=== PATIENT | female | born 1960 | race Caucasian/White ===

== ENCOUNTER → 2016-10-11 | Outpatient (CLI) | payer OTHER ==
[~2016-10-11] MED LIST: ASPEC81 PO; LPT40 PO
== END | disposition home or self-care (01) ==
LOC: C.PAPS 16:10
PROVIDERS: ATTEND Obstetrics & Gynecology
DX: Z01.419 Encounter for gynecological examination (general) (routine) without abnormal findings (principal); N87.9 Dysplasia of cervix uteri, unspecified

== ENCOUNTER 2017-01-31 16:46 | Emergency (ER) | payer OTHER ==
[~2017-01-31] VITALS: Ht 162.6 cm; Wt 63.3 kg
[2017-01-31 16:49] VITALS: TEMP 36.9; Ht 162.6 cm; Wt 63.3 kg
--- NOTE | 2017-01-31 17:54 | DIAGNOSTIC IMAGING REPORT ---
HEAD WITHOUT CONTRAST (CT) CLINICAL HISTORY: 56 years-old Female with numbness. Acute dizziness with left arm numbness TECHNIQUE: Multiple axial CT images of the head were obtained without contrast. A dose lowering technique was utilized adhering to the principles of ALARA. CT DOSE: 638.56 mGycm COMPARISON: Cervical spine CT of same day. FINDINGS: No acute intracranial hemorrhage, midline shift, mass, large territorial ischemia or abnormal extra-axial collection. Focal area of low-attenuation measuring 4 mm within the region of the inferior left lentiform nucleus suggests prominent perivascular space. The brain parenchyma otherwise appears to be within normal limits. The calvarium is intact. The mastoid air cells, and middle ear cavities are clear. Mild mucosal thickening involves the ethmoid air cells. Soft tissues are unremarkable. IMPRESSION: No acute intracranial abnormality. The above report was generated using voice recognition software. It may contain grammatical, syntax or spelling errors. Electronically signed by: Shelton Canales M.D. 01/31/2017 5:53 PM Dictated Date/Time: 01/31/2017 5:51 PM
--- NOTE | 2017-01-31 17:56 | DIAGNOSTIC IMAGING REPORT ---
CERVICAL SPINE W/O CT DOSE: 444.25 mGycm HISTORY: Pain. Radiculopathy. numbness TECHNIQUE: Multiaxial CT images of the cervical spine were performed and reformatted in the sagittal and coronal plane without the use of contrast. A dose lowering technique was utilized adhering to the principles of ALARA. COMPARISON: None FINDINGS: Moderate degenerative disc change throughout the mid to lower cervical region. Vertebral body stature is unremarkable. Moderate osteophytic narrowing of the bulk of the neuroforamina bilaterally. Findings consistent with muscular spasm. IMPRESSION: Muscular spasm. Moderate degenerative change. Osteophytic narrowing of the bulk of the neuroforamina bilaterally. No acute process. The above report was generated using voice recognition software. It may contain grammatical, syntax or spelling errors. Electronically signed by: Max Rogel M.D. 01/31/2017 5:55 PM Dictated Date/Time: 01/31/2017 5:53 PM
--- NOTE | 2017-01-31 17:58 | DIAGNOSTIC IMAGING REPORT ---
CHEST ONE VIEW PORTABLE CLINICAL HISTORY: numbness dyspnea. Neuropathy. COMPARISON STUDY: No previous studies for comparison. FINDINGS: The bones soft tissues and hemidiaphragms are normal. The cardiomediastinal silhouette is normal. The lungs are clear. The pulmonary vasculature is normal. IMPRESSION: Negative chest. The above report was generated using voice recognition software. It may contain grammatical, syntax or spelling errors. Electronically signed by: Max Rogel M.D. 01/31/2017 5:57 PM Dictated Date/Time: 01/31/2017 5:56 PM
--- NOTE | 2017-01-31 18:24 | EMERGENCY ROOM VISIT NOTE ---
History Report prepared by Cesar: Bridgette Brown Under the Supervision of: Dr. Babak Santos D.O. First contact with patient: 16:52 Chief Complaint: NEURO SYMPTOMS Stated Complaint: NUMBNESS IN ARMS AND LEGS History of Present Illness The patient is a 56 year old female who presents to the Emergency Room with complaints of intermittent numbness starting several weeks ago. She visited [facility] today who sent her to the clinic who recommended she come to the ED. She has visited 2 other ERs prior to her visit here for the same symptoms. She had blood work done at both ERs, but declined the CT because she did not have insurance. She was told today to have a CT in the ED today. Her symptoms began several weeks ago with an episode of numbness in her legs. She was trying to get out of bed, but her legs felt heavy and she was off balance and wobbling towards the wall. These symptoms resolved after 30 minutes. Last weekend, she was working in the garden when she started having lower back pain which is not unusual for her. Four days ago, she was sitting at her computer at work when she started getting a "strange feeling" which she describes as an aura. Her arms and legs felt heavy and she felt dizzy when she went to stand up. She has not been feeling like herself. Yesterday, she had trouble using her computer mouse and felt she was not in total control of her arm. She reports a "crunching" in her neck and back soreness. She admits to tobacco and alcohol use. She denies any surgeries besides jaw surgery. She has a history of skin cancer. Source of History: patient Onset: several weeks ago Position: other (global) Quality: numbness Timing: intermittent Associated Symptoms: + neck pain, + back pain Note: Pt reports feeling off balance, dizzy, heavy limbs, decreased control over arm. Review of Systems See HPI for pertinent positives & negatives. A total of 10 systems reviewed and were otherwise negative. Past Medical & Surgical Medical Problems: (1) Skin cancer Family History Heart disease Hypertension Social History Smoking Status: Current Every Day Smoker Marital Status: Current/Historical Medications No Active Prescriptions or Reported Meds Allergies Coded Allergies: Acetaminophen (Verified Allergy, Unknown, ., 10/11/16) Hydrocodone (Verified Allergy, Unknown, ., 10/11/16) Oxycodone (Verified Allergy, Unknown, ., 10/11/16) Penicillins (Verified Allergy, Unknown, ., 10/11/16) Physical Exam Vital Signs Date Time Temp Pulse Resp B/P (MAP) Pulse Ox O2 Delivery O2 Flow Rate FiO2 01/31/17 18:48 84 17 147/89 97 01/31/17 16:49 36.9 89 18 153/93 96 Room Air Physical Exam GENERAL: Patient is awake, alert, and in no acute distress. Patient is resting comfortably and showing no signs of anxiety EYES: The conjunctivae are clear. The pupils are round and reactive. EARS, NOSE, MOUTH AND THROAT: The nose is without any evidence of any deformity. Mucous membranes are moist tongue is midline NECK: The neck is nontender and supple. RESPIRATORY: Normal respiratory effort is noted there is no evidence of wheezing rhonchi or rales CARDIOVASCULAR: Regular rate and rhythm noted there no murmurs rubs or gallops normal S1 normal S2 GASTROINTESTINAL: The abdomen is soft. Bowel sounds are present in all quadrants. Abdomen is nontender MUSCULOSKELETAL/EXTREMITIES: There is no evidence of gross deformity full range of motion is noted in the hips and shoulders SKIN: There is no obvious evidence of any rash. There are no petechiae, pallor or cyanosis noted. NEUROLOGIC: Patient is awake alert and oriented x3 strength is symmetric patellar reflexes are 2+ bilaterally Medical Decision & Procedures ER Provider Diagnostic Interpretation: X-ray results as stated below per interpretation by me and the radiologist. Radiology results as stated below per my review and radiologist interpretation: CHEST ONE VIEW PORTABLE CLINICAL HISTORY: numbness dyspnea. Neuropathy. COMPARISON STUDY: No previous studies for comparison. FINDINGS: The bones soft tissues and hemidiaphragms are normal. The cardiomediastinal silhouette is normal. The lungs are clear. The pulmonary vasculature is normal. IMPRESSION: Negative chest. The above report was generated using voice recognition software. It may contain grammatical, syntax or spelling errors. Electronically signed by: Max Rogel M.D. 01/31/2017 5:57 PM Dictated Date/Time: 01/31/2017 5:56 PM CERVICAL SPINE W/O CT DOSE: 444.25 mGycm HISTORY: Pain. Radiculopathy. numbness TECHNIQUE: Multiaxial CT images of the cervical spine were performed and reformatted in the sagittal and coronal plane without the use of contrast. A dose lowering technique was utilized adhering to the principles of ALARA. COMPARISON: None FINDINGS: Moderate degenerative disc change throughout the mid to lower cervical region. Vertebral body stature is unremarkable. Moderate osteophytic narrowing of the bulk of the neuroforamina bilaterally. Findings consistent with muscular spasm. IMPRESSION: Muscular spasm. Moderate degenerative change. Osteophytic narrowing of the bulk of the neuroforamina bilaterally. No acute process. The above report was generated using voice recognition software. It may contain grammatical, syntax or spelling errors. Electronically signed by: Max Rogel M.D. 01/31/2017 5:55 PM Dictated Date/Time: 01/31/2017 5:53 PM HEAD WITHOUT CONTRAST (CT) CLINICAL HISTORY: 56 years-old Female with numbness. Acute dizziness with left arm numbness TECHNIQUE: Multiple axial CT images of the head were obtained without contrast. A dose lowering technique was utilized adhering to the principles of ALARA. CT DOSE: 638.56 mGycm COMPARISON: Cervical spine CT of same day. FINDINGS: No acute intracranial hemorrhage, midline shift, mass, large territorial ischemia or abnormal extra-axial collection. Focal area of low-attenuation measuring 4 mm within the region of the inferior left lentiform nucleus suggests prominent perivascular space. The brain parenchyma otherwise appears to be within normal limits. The calvarium is intact. The mastoid air cells, and middle ear cavities are clear. Mild mucosal thickening involves the ethmoid air cells. Soft tissues are unremarkable. IMPRESSION: No acute intracranial abnormality. The above report was generated using voice recognition software. It may contain grammatical, syntax or spelling errors. Electronically signed by: Shelton Canales M.D. 01/31/2017 5:53 PM Dictated Date/Time: 01/31/2017 5:51 PM ED Course 1717: The patient was evaluated in room A10. A complete history and physical examination were performed. 1830: Upon reevaluation, the patient is resting comfortably. I discussed the results and treatment plan with her. She verbalized agreement of the treatment plan. She was discharged home. Medical Decision Prior records/ancillary studies reviewed and summarized above. Nursing notes reviewed. The patient's history was concerning for numbness. Differential diagnosis: Etiologies such as metabolic, infection, hypo/hyperglycemia, electrolyte abnormalities, cardiac sources, intracerebral event, toxicologic, neurologic, as well as others were entertained. The patient is a 56-year-old female who presented to the emergency department for an evaluation of numbness. The patient states that she's had a problem with numbness over the last few weeks. She was seen at [facility] and then [facility] for similar complaints. At that time she did not wish to have any radiographic studies because of her insurance status. The patient had a follow-up appointment today with a [facility] physician and was sent to the emergency department for further evaluation. At this time the patient only wishes to have CT and then determine further course from there. I discussed the patient's review graphic studies with her. She did not have any focal neurologic deficit. The patient may require further neuroimaging such as MRI of the brain and spine. She was encouraged to follow-up with her primary care physician to discuss this. Otherwise she was encouraged to return to emergency department immediately if symptoms change worsen or the need arises. Medication Reconcilliation Current Medication List: was personally reviewed by me Blood Pressure Screening Patient's blood pressure: Elevated blood pressure Blood pressure disposition: Referred to PCP Impression Primary Impression: Weakness Additional Impression: Numbness Scribe Attestation The scribe's documentation has been prepared under my direction and personally reviewed by me in its entirety. I confirm that the note above accurately reflects all work, treatment, procedures, and medical decision making performed by me. Departure Information Dispostion Home / Self-Care Prescriptions No Active Prescriptions or Reported Meds Referrals No Doctor, Assigned (PCP) Forms HOME CARE DOCUMENTATION FORM, IMPORTANT VISIT INFORMATION, WORK / SCHOOL INSTRUCTIONS Patient Instructions My [facility] Additional Instructions Follow-up with your family doctor soon as possible. Return to the emergency department if symptoms change worsen or the need arises. I would recommend further studies such as an MRI of the head and spine if symptoms do not improve. Continue all medications as prescribed. Problem Qualifiers
[2017-01-31 18:48] VITALS: BP 147/89; PULSE 84; O2SAT 97
[2017-02-07] MEDS ORDERED: ASPEC81 PO (16:41)
[2017-02-07] MEDS ORDERED: LPT40 PO (17:03)
== END 2017-01-31 18:49 | disposition home or self-care (01) ==
LOC: C.EDB 16:48 → C.EDA 18:49
DX: R53.1 Weakness (principal); R20.0 Anesthesia of skin; M54.2 Cervicalgia; M54.5 Low back pain; R42 Dizziness and giddiness; Z85.828 Personal history of other malignant neoplasm of skin; Z82.49 Family history of ischemic heart disease and other diseases of the circulatory system; F17.200 Nicotine dependence, unspecified, uncomplicated

== ENCOUNTER 2017-02-06 08:47 | Inpatient (IN) | payer OTHER ==
[~2017-02-06] VITALS: Ht 165.1 cm; Wt 62.0 kg
--- NOTE | 2017-02-06 09:26 | EMERGENCY ROOM VISIT NOTE ---
History Report prepared by Cesar: Romeo Reddy Under the Supervision of: Dr. Jessica Scott M.D. First contact with patient: 09:11 Chief Complaint: NEURO SYMPTOMS Stated Complaint: TINGLING/NUMBNESS Nursing Triage Summary: pt states she awoke today feeling weird in the head, R hip and leg and RUE numbness and tingling, lasting approx 5 mins then it started to improve, pt states her R arm and RLE is starting to wake up, pt states she had the same thing 2 wks ago, she was seen here and at [facility]. pt states the numbness and tingling moves around sometimes upper and lower, sometimes right and left History of Present Illness The patient is a 56 year old female who presents to the Emergency Room via EMS with complaints of an episode of right-sided numbness that occurred prior to arrival this morning. She says this is her 4th trip to an ER recently and has no insurance. The patient went to the [place] ER, then [place], and then was here 6 days ago with concern for a stroke. She notes that she had a CT of her head and neck here on Friday. She did not have an MRI at any of those visits. The patient now thinks that was probably a pinched nerve in her back. She notes that she supposed to go to [facility] to try to get free care this morning. The patient was called by [facility] early this morning, and while she was talking to them, she says that her right arm and right leg went "totally numb", and she could not put any weight on them. She states that she could not walk or even crawl. The patient says that the episode lasted 2 to 5 minutes, and she called an ambulance. The patient states that she was able to speak clearly during the episode. She does smoke a pack a day of cigarettes. She says that she drinks 3 to 4 beers per day. Source of History: patient Onset: Prior to arrival this morning Position: arm (right), leg (right) Symptom Intensity: could not put any weight on right arm or leg Quality: numbness Timing: other (episode) Note: Associated symptoms: Denies speech difficulties. Review of Systems See HPI for pertinent positives & negatives. A total of 10 systems reviewed and were otherwise negative. Past Medical & Surgical Medical Problems: (1) Skin cancer Surgical Problems: (1) History of mandibular surgery Family History Cancer Heart disease Hypertension Social History Smoking Status: Current Every Day Smoker Alcohol Use: occasionally Marital Status: Occupation Status: employed Current/Historical Medications No Active Prescriptions or Reported Meds Allergies Coded Allergies: Penicillins (Verified Allergy, Unknown, ., 02/06/17) Physical Exam Vital Signs Date Time Temp Pulse Resp B/P (MAP) Pulse Ox O2 Delivery O2 Flow Rate FiO2 02/06/17 13:53 84 18 152/94 99 Room Air 02/06/17 10:58 79 18 134/79 98 Room Air 02/06/17 10:45 76 150/87 98 02/06/17 08:53 36.7 81 18 145/83 99 Room Air Physical Exam Vital signs reviewed. General: Well-appearing 56 year old female, in no significant distress. HEENT: No scleral icterus, PERRLA, neck supple. Atraumatic. Cardiovascular: Regular rate and rhythm, no extra sounds. Pulmonary: Clear to auscultation bilaterally, normal work of breathing. Abdomen: Soft, nontender, nondistended, positive bowel sounds. Musculoskeletal: Atraumatic, no peripheral edema. Neurologic: Patient awake alert and oriented x 3. Some discomfort with right straight leg raise, no weakness appreciated. Neurologically intact. Cranial nerves 2 through 12 grossly intact. Negative drift Skin: Warm, dry, no rash Medical Decision & Procedures ER Provider Diagnostic Interpretation: Radiology results as stated below per my review and radiologist interpretation: MRA NECK COMBO CLINICAL HISTORY: 56 years-old Female presenting with stroke, not feeling right, strange feeling in head, arms and legs numb. TECHNIQUE: MR angiography of the neck was performed before and after the administration of intravenous contrast. 3-D volumetric and/or maximum intensity projection (MIP) images were subsequently reconstructed for review. IV contrast: None.. All measurements were calculated based on NASCET-like criteria. COMPARISON: None. FINDINGS: Initial 2-D [id number] images demonstrate normal flow-related enhancement in the right common and internal carotid artery. Tortuosity of the proximal right internal carotid artery best demonstrated on postcontrast imaging likely accounts for apparent stenosis noted on 2-D. Loss of normal flow related enhancement at the level of the left carotid bulb with apparent lack of patency of the left internal carotid artery given lack of flow related enhancement. Postcontrast imaging confirms lack of patency of the left internal carotid artery. The left ICA remains occluded to the level of the terminus. Limited intracranial evaluation demonstrates patency of the left anterior and middle cerebral arteries, likely supplied by the right posterior communicating artery and anterior communicating artery. Bilateral vertebral arteries are codominant and patent throughout their cervical courses, both contributing to the vertebrobasilar system. Postcontrast imaging demonstrates normal three-vessel aortic arch which patent origins of the cervical vessels. Tortuosity of the proximal right vertebral artery. IMPRESSION: 1. Occlusion of the left internal carotid artery with apparent patency of the left anterior and middle cerebral arteries, likely supplied by the right posterior communicating artery and anterior commuting artery. 2. Tortuosity of the proximal right internal carotid artery without definite stenosis. The report will be called/faxed according to standard departmental protocol. Electronically signed by: Shen Capellan M.D. 02/06/2017 2:02 PM Dictated Date/Time: 02/06/2017 1:54 PM Brain MRA HISTORY: Left arm numbness. TECHNIQUE: 3-D [id number] MRA of the brain was performed without contrast. COMPARISON STUDY: Head CT 01/31/2017. FINDINGS: Mild motion artifact. The distal vertebral arteries, basilar artery, right internal carotid artery, right MCA, and bilateral ACAs are widely patent. There is complete occlusion of the visualized left internal carotid artery. However, there is persistent flow within the left MCA likely due to perfusion from the anterior cerebral artery and left posterior communicating artery. IMPRESSION: 1. Occluded left ICA. This may be chronic. 2. No significant stenosis, occlusion, or aneurysm within the bilateral ACAs, vice president safety, or MCAs. Electronically signed by: Kevin Rosa M.D. 02/06/2017 1:59 PM Dictated Date/Time: 02/06/2017 1:55 PM MRI OF THE BRAIN COMBO CLINICAL HISTORY: Upper and lower extremity numbness. Clinical concern for stroke. COMPARISON STUDY: CT of the brain dated 01/31/2017. TECHNIQUE: MRI of the brain was performed utilizing various T1 and T2-weighted sequences in the axial, sagittal, and coronal planes. Contrast-enhanced sequences were acquired following the administration of 6.6 cc of Gadavist. The examination is modestly degraded by motion artifact. FINDINGS: Brain parenchyma: There are scattered foci of subcortical and periventricular microangiopathic disease. There is no hemorrhage or mass effect. There is no restricted diffusion to suggest acute ischemia. No enhancing mass lesion is identified on the postcontrast images. Nieto-white matter differentiation is preserved. No extra-axial fluid collection is seen. The cerebellar tonsils are normal in configuration. Ventricles, sulci, and cisterns: Normal in configuration. Pituitary and sella: Unremarkable. Intracranial vasculature: There is loss of the left internal carotid artery flow void at the skull base. The remaining flow voids are maintained. Orbits: The bony orbits are grossly intact. Orbital contents are normal in appearance. Sinuses and mastoids: Clear. Calvarium: Unremarkable. Cervical cord: Partially visualized cervical spinal cord is normal in morphology and signal intensity. IMPRESSION: 1. There is no hemorrhage, enhancing mass, or evidence of acute ischemia. 2. There is loss of the left carotid artery flow void at the skull base suggesting age indeterminant occlusion. Electronically signed by: Jackson Tejeda M.D. 02/06/2017 2:07 PM Dictated Date/Time: 02/06/2017 1:55 PM L-SPINE MIN 4 VIEWS ROUTINE CLINICAL HISTORY: 56 years-old Female presenting with right leg radiculopathy. TECHNIQUE: Frontal, bilateral oblique, and lateral views of the lumbar spine and coned in lateral view of the lumbosacral junction were obtained. COMPARISON: None. FINDINGS: Vertebral bodies maintain normal height and alignment. Intervertebral disc spaces preserved. Anterior osteophytosis noted at multiple levels. Superior endplate concavity at L1 possibly Schmorl's node. No convincing evidence of osseous neural foraminal narrowing. No radiographic evidence of acute fracture or subluxation. Nonobstructive bowel gas pattern. Atherosclerosis. IMPRESSION: Mild multilevel degenerative changes. No radiographic evidence of osseous neural foraminal narrowing. Electronically signed by: Shen Capellan M.D. 02/06/2017 10:41 AM Dictated Date/Time: 02/06/2017 10:39 AM Laboratory Results 02/06/17 10:08 Red Blood Count 4.73, Mean Corpuscular Volume 98.3, Mean Corpuscular Hemoglobin 32.8, Mean Corpuscular Hemoglobin Concent 33.3, Mean Platelet Volume 8.7, Neutrophils (%) (Auto) 61.8, Lymphocytes (%) (Auto) 26.8, Monocytes (%) (Auto) 8.5, Eosinophils (%) (Auto) 2.3, Basophils (%) (Auto) 0.4, Neutrophils # (Auto) 3.26, Lymphocytes # (Auto) 1.41, Monocytes # (Auto) 0.45, Eosinophils # (Auto) 0.12, Basophils # (Auto) 0.02 02/06/17 10:08 Test 02/06/17 09:55 02/06/17 10:08 Urine Color YELLOW Urine Appearance CLEAR (CLEAR) Urine pH 5.0 (4.5-7.5) Urine Specific [place] 1.014 (1.000-1.030) Urine Protein NEG (NEG) Urine Glucose (UA) NEG (NEG) Urine Ketones NEG (NEG) Urine Occult Blood TRACE (NEG) Urine Nitrite NEG (NEG) Urine Bilirubin NEG (NEG) Urine Urobilinogen NEG (NEG) Urine Leukocyte Esterase NEG (NEG) Urine WBC (Auto) 1-5 /hpf (0-5) Urine RBC (Auto) 0-4 /hpf (0-4) Urine Hyaline Casts (Auto) 1-5 /lpf (0-5) Urine Epithelial Cells (Auto) >30 /lpf (0-5) Urine Bacteria (Auto) NEG (NEG) Urine Opiates Screen NEG (NEG) Urine Methadone, Qualitative NEG (NEG) Urine Barbiturates NEG (NEG) Urine Phencyclidine (PCP) Level NEG (NEG) Ur Amphetamine/Methamphetamine NEG (NEG) MDMA (Ecstasy) Screen NEG (NEG) Urine Benzodiazepines Screen NEG (NEG) Urine Cocaine Metabolite NEG (NEG) Urine Marijuana (THC) NEG (NEG) White Blood Count 5.27 K/uL (4.8-10.8) Red Blood Count 4.73 M/uL (4.2-5.4) Hemoglobin 15.5 g/dL (12.0-16.0) Hematocrit 46.5 % (37-47) Mean Corpuscular Volume 98.3 fL (80-100) Mean Corpuscular Hemoglobin 32.8 pg (25-34) Mean Corpuscular Hemoglobin Concent 33.3 g/dl (32-36) Platelet Count 212 K/uL (130-400) Mean Platelet Volume 8.7 fL (7.4-10.4) Neutrophils (%) (Auto) 61.8 % Lymphocytes (%) (Auto) 26.8 % Monocytes (%) (Auto) 8.5 % Eosinophils (%) (Auto) 2.3 % Basophils (%) (Auto) 0.4 % Neutrophils # (Auto) 3.26 K/uL (1.4-6.5) Lymphocytes # (Auto) 1.41 K/uL (1.2-3.4) Monocytes # (Auto) 0.45 K/uL (0.11-0.59) Eosinophils # (Auto) 0.12 K/uL (0-0.5) Basophils # (Auto) 0.02 K/uL (0-0.2) RDW Standard Deviation 46.5 fL (36.4-46.3) RDW Coefficient of Variation 12.7 % (11.5-14.5) Immature Granulocyte % (Auto) 0.2 % Immature Granulocyte # (Auto) 0.01 K/uL (0.00-0.02) Anion Gap 5.0 mmol/L (3-11) Est Creatinine Clear Calc Drug Dose 72.7 ml/min Estimated GFR () 100.0 Estimated GFR (Non- 86.3 BUN/Creatinine Ratio 10.6 (10-20) Calcium Level 9.3 mg/dl (8.5-10.1) Magnesium Level 2.2 mg/dl (1.8-2.4) Total Bilirubin 0.4 mg/dl (0.2-1) Direct Bilirubin < 0.1 mg/dl (0-0.2) Aspartate Amino Transf (AST/SGOT) 20 U/L (15-37) Alanine Aminotransferase (ALT/SGPT) 24 U/L (12-78) Alkaline Phosphatase 75 U/L (45-117) Total Protein 7.8 gm/dl (6.4-8.2) Albumin 3.8 gm/dl (3.4-5.0) Thyroid Stimulating Hormone (TSH) 1.290 uIu/ml (0.300-4.500) Salicylates Level 4.3 mg/dl (2.8-20) Acetaminophen Level < 2 ug/ml (10-30) Ethyl Alcohol mg/dL < 3.0 mg/dl (0-3) Laboratory results per my review. ECG Indication: other (numbness) Rate (beats per minute): 81 Rhythm: normal sinus Findings: no acute ischemic change, no ectopy ED Course 0916: Past medical records reviewed. The patient was evaluated in room B2. A complete history and physical examination was performed. 1415: I reevaluated the patient and she is resting. The patient verbally expressed understanding and agreement with the treatment plan. The patient will be evaluated for further treatment. 1427: I discussed the patient with Violeta Pradhan television mechanic - she will evaluate the patient for further treatment. Medical Decision Differential diagnosis: Etiologies such as benign positional vertigo, dehydration, hypovolemia, anemia, tumor, infection, hypoglycemia, electrolyte abnormalities, cardiac sources, intracerebral event, toxicologic, neurologic, stroke, as well as others were entertained. This patient was evaluated and appeared to be in no significant distress. IV access was obtained and laboratory work was drawn. Patient was placed on the public health nurse and appeared to be in no distress. Patient's physical exam is unrevealing. She has had a recent CT scan of the head and neck. MR I/MRA of the head was ordered as well as an MRA of the neck. Patient is found have a tortuous right carotid artery and an occluded left internal carotid artery. The patient was discussed with the hospitalist service. She'll be admitted for further management. She is aware of the plan and agrees. Medication Reconcilliation Current Medication List: was personally reviewed by me No medications on list. Blood Pressure Screening Patient's blood pressure: Elevated blood pressure Deferred to hospitalist. Consults Time Called: 1422 Consulting Physician: Violeta Pradhan television mechanic Returned Call: 1424 I discussed the patient with Violeta Pradhan television mechanic - she will evaluate the patient for further treatment. Impression Primary Impression: TIA (transient ischemic attack) Additional Impression: Left carotid artery occlusion Scribe Attestation The scribe's documentation has been prepared under my direction and personally reviewed by me in its entirety. I confirm that the note above accurately reflects all work, treatment, procedures, and medical decision making performed by me. Departure Information Dispostion Being Evaluated By Hospitalist Prescriptions No Active Prescriptions or Reported Meds Referrals No Doctor, Assigned (PCP) Patient Instructions My [facility] Problem Qualifiers Primary Impression: TIA (transient ischemic attack)
[2017-02-06 10:26] LABS: BASO % 0.4 %; BASO ABS # 0.02 K/uL (0-0.2); COMPLETE YES; EOS % 2.3 %; HEMATOCRIT 46.5 % (37-47); IG% 0.2 %; LYMPH % 26.8 %; LYMPH ABS # 1.41 K/uL (1.2-3.4); MEAN CELL VOLUME 98.3 fL (80-100); MEAN CORPUSCULAR HEMOGLOBIN 32.8 pg (25-34); MEAN CORPUSCULAR HGB CONC 33.3 g/dl (32-36); MEAN PLATELET VOLUME 8.7 fL (7.4-10.4); MONO % 8.5 %; NEUT % 61.8 %; PLATELET COUNT 212 K/uL (130-400); RED BLOOD COUNT 4.73 M/uL (4.2-5.4); WHITE BLOOD COUNT 5.27 K/uL (4.8-10.8)
[2017-02-06 10:35] LABS: MANUAL MICROSCOPIC REQUIRED? NO; REVIEW REQ? NO; URINE APPEARANCE CLEAR (CLEAR); URINE BILIRUBIN NEG (NEG); URINE COLOR YELLOW; URINE EPITHELIAL CELL AUTO >30 /lpf (0-5); URINE NITRITE NEG (NEG); URINE SPECIFIC GRAVITY 1.014 (1.000-1.030); UROBILINOGEN NEG (NEG); ZZUR CULT IF INDIC CLEAN CATCH NO
--- NOTE | 2017-02-06 10:42 | DIAGNOSTIC IMAGING REPORT ---
L-SPINE MIN 4 VIEWS ROUTINE CLINICAL HISTORY: 56 years-old Female presenting with right leg radiculopathy. TECHNIQUE: Frontal, bilateral oblique, and lateral views of the lumbar spine and coned in lateral view of the lumbosacral junction were obtained. COMPARISON: None. FINDINGS: Vertebral bodies maintain normal height and alignment. Intervertebral disc spaces preserved. Anterior osteophytosis noted at multiple levels. Superior endplate concavity at L1 possibly Schmorl's node. No convincing evidence of osseous neural foraminal narrowing. No radiographic evidence of acute fracture or subluxation. Nonobstructive bowel gas pattern. Atherosclerosis. IMPRESSION: Mild multilevel degenerative changes. No radiographic evidence of osseous neural foraminal narrowing. Electronically signed by: Shen Capellan M.D. 02/06/2017 10:41 AM Dictated Date/Time: 02/06/2017 10:39 AM
[2017-02-06 10:44] LABS: ALT/SGPT 24 U/L (12-78); BLOOD UREA NITROGEN 8 mg/dl (7-18); BUN/CREATININE RATIO 10.6 (10-20); CALCIUM 9.3 mg/dl (8.5-10.1); CARBON DIOXIDE 28 mmol/L (21-32); CHLORIDE 108 mmol/L (98-107); CREATININE 0.77 mg/dl (0.60-1.20); GLUCOSE 101 mg/dl (70-99); MAGNESIUM 2.2 mg/dl (1.8-2.4); POTASSIUM 4.3 mmol/L (3.5-5.1); SODIUM 141 mmol/L (136-145)
[2017-02-06 10:47] LABS: ACETAMINOPHEN < 2 ug/ml (10-30)
[2017-02-06 10:55] LABS: ALKALINE PHOSPHATASE 75 U/L (45-117); AST/SGOT 20 U/L (15-37)
[2017-02-06 11:01] LABS: BENZODIAZEPINE, URINE NEG (NEG); COCAINE,URINE NEG (NEG); PHENCYCLIDINE, URINE NEG (NEG)
[2017-02-06] MEDS ORDERED: GADAVIST IV PRN (14:00)
--- NOTE | 2017-02-06 14:01 | DIAGNOSTIC IMAGING REPORT ---
Brain MRA HISTORY: Left arm numbness. TECHNIQUE: 3-D [id number] MRA of the brain was performed without contrast. COMPARISON STUDY: Head CT 01/31/2017. FINDINGS: Mild motion artifact. The distal vertebral arteries, basilar artery, right internal carotid artery, right MCA, and bilateral ACAs are widely patent. There is complete occlusion of the visualized left internal carotid artery. However, there is persistent flow within the left MCA likely due to perfusion from the anterior cerebral artery and left posterior communicating artery. IMPRESSION: 1. Occluded left ICA. This may be chronic. 2. No significant stenosis, occlusion, or aneurysm within the bilateral ACAs, new home sales consultant, or MCAs. Electronically signed by: Kevin Rosa M.D. 02/06/2017 1:59 PM Dictated Date/Time: 02/06/2017 1:55 PM
--- NOTE | 2017-02-06 14:03 | DIAGNOSTIC IMAGING REPORT ---
MRA NECK COMBO CLINICAL HISTORY: 56 years-old Female presenting with stroke, not feeling right, strange feeling in head, arms and legs numb. TECHNIQUE: MR angiography of the neck was performed before and after the administration of intravenous contrast. 3-D volumetric and/or maximum intensity projection (MIP) images were subsequently reconstructed for review. IV contrast: None.. All measurements were calculated based on NASCET-like criteria. COMPARISON: None. FINDINGS: Initial 2-D [id number] images demonstrate normal flow-related enhancement in the right common and internal carotid artery. Tortuosity of the proximal right internal carotid artery best demonstrated on postcontrast imaging likely accounts for apparent stenosis noted on 2-D. Loss of normal flow related enhancement at the level of the left carotid bulb with apparent lack of patency of the left internal carotid artery given lack of flow related enhancement. Postcontrast imaging confirms lack of patency of the left internal carotid artery. The left ICA remains occluded to the level of the terminus. Limited intracranial evaluation demonstrates patency of the left anterior and middle cerebral arteries, likely supplied by the right posterior communicating artery and anterior communicating artery. Bilateral vertebral arteries are codominant and patent throughout their cervical courses, both contributing to the vertebrobasilar system. Postcontrast imaging demonstrates normal three-vessel aortic arch which patent origins of the cervical vessels. Tortuosity of the proximal right vertebral artery. IMPRESSION: 1. Occlusion of the left internal carotid artery with apparent patency of the left anterior and middle cerebral arteries, likely supplied by the right posterior communicating artery and anterior commuting artery. 2. Tortuosity of the proximal right internal carotid artery without definite stenosis. The report will be called/faxed according to standard departmental protocol. Electronically signed by: Shen Capellan M.D. 02/06/2017 2:02 PM Dictated Date/Time: 02/06/2017 1:54 PM
--- NOTE | 2017-02-06 14:08 | DIAGNOSTIC IMAGING REPORT ---
MRI OF THE BRAIN COMBO CLINICAL HISTORY: Upper and lower extremity numbness. Clinical concern for stroke. COMPARISON STUDY: CT of the brain dated 01/31/2017. TECHNIQUE: MRI of the brain was performed utilizing various T1 and T2-weighted sequences in the axial, sagittal, and coronal planes. Contrast-enhanced sequences were acquired following the administration of 6.6 cc of Gadavist. The examination is modestly degraded by motion artifact. FINDINGS: Brain parenchyma: There are scattered foci of subcortical and periventricular microangiopathic disease. There is no hemorrhage or mass effect. There is no restricted diffusion to suggest acute ischemia. No enhancing mass lesion is identified on the postcontrast images. Nieto-white matter differentiation is preserved. No extra-axial fluid collection is seen. The cerebellar tonsils are normal in configuration. Ventricles, sulci, and cisterns: Normal in configuration. Pituitary and sella: Unremarkable. Intracranial vasculature: There is loss of the left internal carotid artery flow void at the skull base. The remaining flow voids are maintained. Orbits: The bony orbits are grossly intact. Orbital contents are normal in appearance. Sinuses and mastoids: Clear. Calvarium: Unremarkable. Cervical cord: Partially visualized cervical spinal cord is normal in morphology and signal intensity. IMPRESSION: 1. There is no hemorrhage, enhancing mass, or evidence of acute ischemia. 2. There is loss of the left carotid artery flow void at the skull base suggesting age indeterminant occlusion. Electronically signed by: Jackson Tejeda M.D. 02/06/2017 2:07 PM Dictated Date/Time: 02/06/2017 1:55 PM
[2017-02-06 15:46] VITALS: Ht 165.1 cm; Wt 62.0 kg
--- NOTE | 2017-02-06 15:57 | History and Physical ---
History & Physical Date & Time of Service: Feb 06, 2017 at 15:52 Chief Complaint: Tingling/Numbness Primary Care Physician: No Doctor, Assigned History of Present Illness This is a 56yo F with a PMH of tobacco and etoh abuse who presents after an episode of R-sided numbness that occurred earlier this morning. Patient was in her kitchen when she experienced sudden numbness in her head and R extremities. Pt crawled to another room to call EMS. Symptoms resolved within 5 minutes and she was able to dress herself while still experiencing residual "heaviness". Denies any tingling or pain in extremities or difficulty with mentation or speech during this episode. Over the past 2 weeks, patient has presented to the [facility] and [facility] EDs for similar symptoms. Had a CT head here on Friday that was normal. She did not have an MRI done during any of the visits because patient does not have insurance and did not want to pay out of pocket. Currently endorses intermittent episodes of paresthesias in bilateral UE and LE , described as an "intellectual feeling that my body is not right". Also endorses slowed mentation and dizziness but denies any headache, pain, confusion , difficulty speaking, weakness or numbness in extremities. Past Medical/Surgical History Medical Problems: (1) Skin cancer Status: Resolved Surgical Problems: (1) History of mandibular surgery Status: Resolved Family History Cancer Heart disease FATHER Hypertension Stroke FATHER Social History Smoking Status: Current Every Day Smoker Alcohol Use: 3-4 beers/day Marital Status: Occupational Status: employed Multi-Drug Resistant Organisms History of MDRO: No Allergies Coded Allergies: Penicillins (Verified Allergy, Unknown, ., 02/06/17) Home Medications No Active Prescriptions or Reported Meds Review of Systems Ten systems reviewed and negative except as noted in the HPI. Physical Exam Vital Signs Date Time Temp Pulse Resp B/P (MAP) Pulse Ox O2 Delivery O2 Flow Rate FiO2 02/06/17 13:53 84 18 152/94 99 Room Air 02/06/17 10:58 79 18 134/79 98 Room Air 02/06/17 10:45 76 150/87 98 02/06/17 08:53 36.7 81 18 145/83 99 Room Air General Appearance: WD/WN, no apparent distress Head: normocephalic, atraumatic Eyes: normal inspection, PERRL, EOMI, sclerae normal ENT: normal ENT inspection, hearing grossly normal Neck: supple, no adenopathy, thyroid normal, trachea midline Respiratory/Chest: chest non-tender, lungs clear, normal breath sounds, no respiratory distress, no accessory muscle use Cardiovascular: regular rate, rhythm, no edema, no gallop, no murmur, normal peripheral pulses Abdomen/GI: normal bowel sounds, non tender, soft, no organomegaly Back: normal inspection Extremities/Musculoskelatal: normal inspection, no calf tenderness, normal capillary refill, no pedal edema, normal range of motion Neurologic/Psych: information clerk II-XII nml as tested, no motor/sensory deficits (Full ROM and 5/5 TERESITA in all extremities. Normal gait, cerebellar function intact. ), alert, normal mood/affect, oriented x 3 Skin: normal color, warm/dry Diagnostics Laboratory Results Results Past 24 Hours Test 02/06/17 09:55 02/06/17 10:08 Range/Units Urine Color YELLOW Urine Appearance CLEAR CLEAR Urine pH 5.0 4.5-7.5 Urine Specific [place] 1.014 1.000-1.030 Urine Protein NEG NEG Urine Glucose (UA) NEG NEG Urine Ketones NEG NEG Urine Occult Blood TRACE NEG Urine Nitrite NEG NEG Urine Bilirubin NEG NEG Urine Urobilinogen NEG NEG Urine Leukocyte Esterase NEG NEG Urine WBC (Auto) 1-5 0-5 /hpf Urine RBC (Auto) 0-4 0-4 /hpf Urine Hyaline Casts (Auto) 1-5 0-5 /lpf Urine Epithelial Cells (Auto) >30 0-5 /lpf Urine Bacteria (Auto) NEG NEG Urine Opiates Screen NEG NEG Urine Methadone, Qualitative NEG NEG Urine Barbiturates NEG NEG Urine Phencyclidine (PCP) Level NEG NEG Ur Amphetamine/Methamphetamine NEG NEG MDMA (Ecstasy) Screen NEG NEG Urine Benzodiazepines Screen NEG NEG Urine Cocaine Metabolite NEG NEG Urine Marijuana (THC) NEG NEG White Blood Count 5.27 4.8-10.8 K/uL Red Blood Count 4.73 4.2-5.4 M/uL Hemoglobin 15.5 12.0-16.0 g/dL Hematocrit 46.5 37-47 % Mean Corpuscular Volume 98.3 80-100 fL Mean Corpuscular Hemoglobin 32.8 25-34 pg Mean Corpuscular Hemoglobin Concent 33.3 32-36 g/dl Platelet Count 212 130-400 K/uL Mean Platelet Volume 8.7 7.4-10.4 fL Neutrophils (%) (Auto) 61.8 % Lymphocytes (%) (Auto) 26.8 % Monocytes (%) (Auto) 8.5 % Eosinophils (%) (Auto) 2.3 % Basophils (%) (Auto) 0.4 % Neutrophils # (Auto) 3.26 1.4-6.5 K/uL Lymphocytes # (Auto) 1.41 1.2-3.4 K/uL Monocytes # (Auto) 0.45 0.11-0.59 K/uL Eosinophils # (Auto) 0.12 0-0.5 K/uL Basophils # (Auto) 0.02 0-0.2 K/uL RDW Standard Deviation 46.5 36.4-46.3 fL RDW Coefficient of Variation 12.7 11.5-14.5 % Immature Granulocyte % (Auto) 0.2 % Immature Granulocyte # (Auto) 0.01 0.00-0.02 K/uL Sodium Level 141 136-145 mmol/L Potassium Level 4.3 3.5-5.1 mmol/L Chloride Level 108 98-107 mmol/L Carbon Dioxide Level 28 21-32 mmol/L Anion Gap 5.0 3-11 mmol/L Blood Urea Nitrogen 8 7-18 mg/dl Creatinine 0.77 0.60-1.20 mg/dl Est Creatinine Clear Calc Drug Dose 72.7 ml/min Estimated GFR () 100.0 Estimated GFR (Non- 86.3 BUN/Creatinine Ratio 10.6 10-20 Random Glucose 101 70-99 mg/dl Calcium Level 9.3 8.5-10.1 mg/dl Magnesium Level 2.2 1.8-2.4 mg/dl Total Bilirubin 0.4 0.2-1 mg/dl Direct Bilirubin < 0.1 0-0.2 mg/dl Aspartate Amino Transf (AST/SGOT) 20 15-37 U/L Alanine Aminotransferase (ALT/SGPT) 24 12-78 U/L Alkaline Phosphatase 75 45-117 U/L Total Protein 7.8 6.4-8.2 gm/dl Albumin 3.8 3.4-5.0 gm/dl Thyroid Stimulating Hormone (TSH) 1.290 0.300-4.500 uIu/ml Salicylates Level 4.3 2.8-20 mg/dl Acetaminophen Level < 2 10-30 ug/ml Ethyl Alcohol mg/dL < 3.0 0-3 mg/dl Diagnostic Radiology MRI brain: IMPRESSION: 1. There is no hemorrhage, enhancing mass, or evidence of acute ischemia. 2. There is loss of the left carotid artery flow void at the skull base suggesting age indeterminant occlusion. Head MRA: IMPRESSION: 1. Occluded left ICA. This may be chronic. 2. No significant stenosis, occlusion, or aneurysm within the bilateral ACAs, sales representative canvas products, or MCAs. Neck MRA: IMPRESSION: 1. Occlusion of the left internal carotid artery with apparent patency of the left anterior and middle cerebral arteries, likely supplied by the right posterior communicating artery and anterior commuting artery. 2. Tortuosity of the proximal right internal carotid artery without definite stenosis. Normal EKG Impression Assessment and Plan This is a 56yo F with a PMH of tobacco and etoh abuse who presents after an episode of R-sided numbness that occurred earlier this morning. R sided paresthesias, ?TIA: -Endorses intermittent numbness in head, R UE and LE with some paresthesias -Described multiple events over the past 2 weeks that correlate clinically with TIAs -Neuro exam normal, without any focal deficits. Patient with mentation intact. -Results from Brain MRI, MRA brain and neck listed above -Left ICA with total occlusion, which is the most likely cause of symptoms -Due to total occlusion, vascular surgery not indicated -Consulted neuro, who recommended CTA of head and neck to confirm L ICA occlusion -Started on aspirin, statin, discussed smoking cessation -Fasting lipid panel in AM, PT/OT/speech evals, echo ordered DVT Ppx: Lovenox Code status: FULL PCP: None currently. Provided literature for establishing with [facility] Dispo: Plan to return home once medically stable Attending addendum: Agree with the above H&P; please refer to above for more detail. Patient is a 56 yo female who presented to the ER for symptoms of right sided numbness from her head to her toes; the symptoms resolved at home after a few mins, but the patient reports ongoing symptoms of paresthesias and "disconnect" of her right side. She also feels as though she is unable to think clearly. She is concerned about having a stroke. This is her 4th ER visit regarding this complaint and states it has occurred several times over the last 2 weeks. No other complaints noted. Cardiac: RR, S1 and S2 auscultated, no carotid bruits Resp: CTA B/L GI: soft, NT, ND, + BS Neuro: no focal motor or sensory deficits noted, A&O x3, fine motor skills intact RIGHT SIDE PARESTHESIAS: -questionable TIA -Neuro consulted, recommend CTA for follow up on the left ICA occlusion that was noted on the MRA -neuro checks -start ASA, statin -lipid panel in AM -monitor in tele Level of Care Med/Surg Resuscitation Status FULL RESUSCITATION VTE Prophylaxis Risk Level: Moderate Given or contraindicated: Enoxaparin (Lovenox)SQ
[2017-02-06] MEDS ORDERED: OPTIRAY 320 IV PRN (16:15)
[2017-02-06] MEDS ORDERED: ACETAMINOPHEN 325 MG TAB PO PRN (16:15)
[2017-02-06] MEDS ORDERED: PHARMACIST DISCHARGE MED REC CONSULT PRN (16:15)
[2017-02-06] MEDS ORDERED: ONDANSETRON INJ 2 MG/ML 2 ML VIAL IV PRN (16:15)
[2017-02-06] MEDS ORDERED: ASPIRIN/ALUM/MAGNES/CAL CARB 325 MG TAB PO ONE (16:30)
[2017-02-06] MEDS ORDERED: ASPIRIN 324 MG CHEW ONE (16:37)
[2017-02-06 17:34] LABS: ESTIMATED AVERAGE GLUCOSE 108 mg/dl; HA1C FLAG Normal (Normal)
[2017-02-06 18:23] VITALS: BP 154/82; PULSE 73; TEMP 36.7; O2SAT 97
--- NOTE | 2017-02-06 18:32 | DIAGNOSTIC IMAGING REPORT ---
CT ANGIOGRAPHY HEAD COMBO CT DOSE: 959.73 mGy.cm CLINICAL HISTORY: Transient ischemic attack.. Abnormal MRI with possible left internal carotid artery occlusion TECHNIQUE: The patient was scanned in a dynamic helical fashion during intravenous administration of 115 cc of Optiray 320. MIP imaging was performed A dose lowering technique was utilized adhering to the principles of ALARA. COMPARISON STUDY: MRI the brain dated 02/06/2017 FINDINGS: Unenhanced images reveal no intra or extra-axial mass lesions. There is no CT evidence of acute cortical infarction. There is no midline shift. There is no acute hemorrhage. There is no hydrocephalus. Patchy white matter hypodensities, likely on a small vessel basis. Postcontrast images reveal left internal carotid artery occlusion. The left middle cerebral artery territory is fed via a patent anterior to indicating artery. There is a origin of the left posterior cerebral. There are no lesion suspicious for aneurysm. There are no findings to indicate dural venous sinus thrombosis. There are no pathologically enhancing masses. There are no lesion suspicious for aneurysm. There is venous ectasia/varix at the level the right orbital apex. IMPRESSION: 1. Left internal carotid artery occlusion 2. The anterior circulation of the left hemisphere is fed via a patent anterior communicating artery 3. No evidence of aneurysm Electronically signed by: Dominik Noble M.D. 02/06/2017 6:31 PM Dictated Date/Time: 02/06/2017 6:22 PM
--- NOTE | 2017-02-06 18:41 | DIAGNOSTIC IMAGING REPORT ---
CT NECK ANGIO WITH CONTRAST CLINICAL HISTORY: Left carotid occlusion. Transient ischemic attack. Abnormal MRI. COMPARISON STUDY: MRI of the brain dated February 06, 2017 TECHNIQUE: CT angiography was performed from the aortic arch to the skull base. MIP imaging was performed. The patient was scanned in a dynamic helical fashion during intravenous administration of 115 cc of Optiray 320. A dose lowering technique was utilized adhering to the principles of ALARA. CT DOSE: Technique: CT angiogram of the carotid and vertebral arteries was obtained using intravenous contrast and 3-D reconstruction. NASCET criteria was utilized. Findings: There is a 50% diameter stenosis of the right internal carotid margin. Left internal carotid artery is occluded at its origin There is no evidence of hemodynamically significant vertebral stenosis. There is no evidence of vertebral dissection. There is a 30% diameter stenosis of the proximal left subclavian artery. IMPRESSION: 1. Occlusion of the left internal carotid artery at its origin 2. 50% diameter stenosis of the right internal carotid margin 3. No evidence of vertebral artery stenosis Electronically signed by: Dominik Noble M.D. 02/06/2017 6:40 PM Dictated Date/Time: 02/06/2017 6:32 PM
[2017-02-06 19:33] VITALS: BP 152/87; PULSE 75; TEMP 36.7; O2SAT 98
--- NOTE | 2017-02-06 20:09 | Neurology Consultation ---
Neurology Consultation Date of Consultation: Feb 06, 2017. Attending Physician: Sarita Peters M.D. Primary Care Physician: No Doctor, Assigned Reason for Consultation: TIA History of Present Illness Source: patient Aline is a 56 year old female who has a benign medical history however she does not follow with a PCP. She has a tobacco and EtOH abuse history. She was in her kitchen when she experienced a spacy feeling in her head and she was unable to control her right arm. Crawled to another room to call EMS. Symptoms resolved within 5 minutes and she was able to dress herself while still experiencing residual "heaviness". Over the past 2 weeks, patient has presented to the [facility] and [facility] EDs for similar symptoms. Had a CT head here on Friday that was normal. She did not have an MRI done during any of the visits because patient does not have insurance and did not want to pay out of pocket. intermittent episodes of paresthesias in bilateral UE and LE, and a feeling she has a hard time describing but she knows something is wrong. She states she had an episode at work with slowed mentation and dizziness but denies any headache, pain, confusion, difficulty speaking, weakness or numbness in extremities, falls, N, V, sick exposure. She states her dad had a stroke but he was 85 when that happened. She has no history of head trauma or falls no history of migraine Past Medical/Surgical History Medical Problems: (1) Left carotid artery occlusion Status: Acute (2) Numbness Status: Acute (3) TIA (transient ischemic attack) Status: Acute (4) Weakness Status: Acute Social History Smoking Status: Current every day smoker Smokeless Tobacco Use: No Alcohol Use: 3-4 beers/day Marital Status: Occupation Status: employed Allergies Coded Allergies: Penicillins (Verified Allergy, Unknown, ., 02/06/17) Current Inpatient Medications Current Inpatient Medications Medications (Trade) Dose Ordered Sig/Caro Route Start Time Stop Time Status Last Admin Dose Admin Gadobutrol (Gadavist) 6.6 mmol UD PRN IV 02/06/17 14:00 02/10/17 13:59 Acetaminophen (Tylenol Tab) 650 mg Q4H PRN PO 02/06/17 16:15 03/08/17 16:14 Ondansetron HCl (Zofran Inj) 4 mg Q6H PRN IV 02/06/17 16:15 03/08/17 16:14 Aspirin (Ecotrin Tab) 81 mg QAM PO 02/07/17 09:00 03/09/17 08:59 Ioversol (Optiray 320) 100 ml UD PRN IV 02/06/17 16:15 02/10/17 16:14 Miscellaneous Information (Pharmacist Discharge Med Rec Consult) 1 ea UD PRN N/A 02/06/17 16:15 03/08/17 16:14 Atorvastatin Calcium (Lipitor Tab) 80 mg QAM PO 02/06/17 16:15 03/08/17 16:14 Physical Exam Vital Signs (Past 24 Hrs): Date Time Temp Pulse Resp B/P (MAP) Pulse Ox O2 Delivery O2 Flow Rate FiO2 02/06/17 18:23 36.7 73 17 154/82 (106) 97 Room Air 02/06/17 17:23 80 20 139/82 100 Room Air 02/06/17 16:15 80 18 139/80 97 Room Air 02/06/17 15:46 Room Air 02/06/17 13:53 84 18 152/94 99 Room Air 02/06/17 10:58 79 18 134/79 98 Room Air 02/06/17 10:45 76 150/87 98 02/06/17 08:53 36.7 81 18 145/83 99 Room Air Physical Exam: Constitutional: appearance nourished, healthy and normal Ears, Nose, Mouth and Throat: mucous membranes moist, no injection and skin normal, eyes normal Cardiovascular: normal S-1 and S-2 and regular rate and rhythm Respiratory: clear to auscultation (CTA) and no rales, rhonchi or wheeze Musculoskeletal: no peripheral edema and good distal pulses Skin: no stigmata of neurocutaneous disease noted and normal and intact Eyes: extraocular muscles intact (EOMI) and pupils equal, round and reactive to light (PERRL) NEUROLOGIC EXAMINATION: Mental status: Alert and interactive Oriented to full date and location Oriented to person Speech fluent with no evidence of aphasia Cranial Nerves smile eye brow raise symmetric, tongue midline Reflexes: Deep tendon reflexes were symmetrical and graded 2/5. Plantar responses were flexor. Sensory: no deficit to cool vibration GT proprioception intact Coordination: Romberg absent Gait/Stance: Posture normal. Gait normal: with steady with steps, base, turning, tandem gait. Motor: Negative for pronator drift of out stretched arms with eyes closed. 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 5/5, hip flex plantar flex ext 5 /5 Laboratory Results Past 24 Hours: 02/06/17 10:08 Red Blood Count 4.73, Mean Corpuscular Volume 98.3, Mean Corpuscular Hemoglobin 32.8, Mean Corpuscular Hemoglobin Concent 33.3, Mean Platelet Volume 8.7, Neutrophils (%) (Auto) 61.8, Lymphocytes (%) (Auto) 26.8, Monocytes (%) (Auto) 8.5, Eosinophils (%) (Auto) 2.3, Basophils (%) (Auto) 0.4, Neutrophils # (Auto) 3.26, Lymphocytes # (Auto) 1.41, Monocytes # (Auto) 0.45, Eosinophils # (Auto) 0.12, Basophils # (Auto) 0.02 02/06/17 10:08 Test 02/06/17 09:55 02/06/17 10:08 Urine Color YELLOW Urine Appearance CLEAR (CLEAR) Urine pH 5.0 (4.5-7.5) Urine Specific [place] 1.014 (1.000-1.030) Urine Protein NEG (NEG) Urine Glucose (UA) NEG (NEG) Urine Ketones NEG (NEG) Urine Occult Blood TRACE (NEG) Urine Nitrite NEG (NEG) Urine Bilirubin NEG (NEG) Urine Urobilinogen NEG (NEG) Urine Leukocyte Esterase NEG (NEG) Urine WBC (Auto) 1-5 /hpf (0-5) Urine RBC (Auto) 0-4 /hpf (0-4) Urine Hyaline Casts (Auto) 1-5 /lpf (0-5) Urine Epithelial Cells (Auto) >30 /lpf (0-5) Urine Bacteria (Auto) NEG (NEG) Urine Opiates Screen NEG (NEG) Urine Methadone, Qualitative NEG (NEG) Urine Barbiturates NEG (NEG) Urine Phencyclidine (PCP) Level NEG (NEG) Ur Amphetamine/Methamphetamine NEG (NEG) MDMA (Ecstasy) Screen NEG (NEG) Urine Benzodiazepines Screen NEG (NEG) Urine Cocaine Metabolite NEG (NEG) Urine Marijuana (THC) NEG (NEG) White Blood Count 5.27 K/uL (4.8-10.8) Red Blood Count 4.73 M/uL (4.2-5.4) Hemoglobin 15.5 g/dL (12.0-16.0) Hematocrit 46.5 % (37-47) Mean Corpuscular Volume 98.3 fL (80-100) Mean Corpuscular Hemoglobin 32.8 pg (25-34) Mean Corpuscular Hemoglobin Concent 33.3 g/dl (32-36) Platelet Count 212 K/uL (130-400) Mean Platelet Volume 8.7 fL (7.4-10.4) Neutrophils (%) (Auto) 61.8 % Lymphocytes (%) (Auto) 26.8 % Monocytes (%) (Auto) 8.5 % Eosinophils (%) (Auto) 2.3 % Basophils (%) (Auto) 0.4 % Neutrophils # (Auto) 3.26 K/uL (1.4-6.5) Lymphocytes # (Auto) 1.41 K/uL (1.2-3.4) Monocytes # (Auto) 0.45 K/uL (0.11-0.59) Eosinophils # (Auto) 0.12 K/uL (0-0.5) Basophils # (Auto) 0.02 K/uL (0-0.2) RDW Standard Deviation 46.5 fL (36.4-46.3) RDW Coefficient of Variation 12.7 % (11.5-14.5) Immature Granulocyte % (Auto) 0.2 % Immature Granulocyte # (Auto) 0.01 K/uL (0.00-0.02) Anion Gap 5.0 mmol/L (3-11) Est Creatinine Clear Calc Drug Dose 72.7 ml/min Estimated GFR () 100.0 Estimated GFR (Non- 86.3 BUN/Creatinine Ratio 10.6 (10-20) Estimated Average Glucose 108 mg/dl Hemoglobin A1c 5.4 % (4.5-5.6) Calcium Level 9.3 mg/dl (8.5-10.1) Magnesium Level 2.2 mg/dl (1.8-2.4) Total Bilirubin 0.4 mg/dl (0.2-1) Direct Bilirubin < 0.1 mg/dl (0-0.2) Aspartate Amino Transf (AST/SGOT) 20 U/L (15-37) Alanine Aminotransferase (ALT/SGPT) 24 U/L (12-78) Alkaline Phosphatase 75 U/L (45-117) Total Protein 7.8 gm/dl (6.4-8.2) Albumin 3.8 gm/dl (3.4-5.0) Thyroid Stimulating Hormone (TSH) 1.290 uIu/ml (0.300-4.500) Salicylates Level 4.3 mg/dl (2.8-20) Acetaminophen Level < 2 ug/ml (10-30) Ethyl Alcohol mg/dL < 3.0 mg/dl (0-3) Imaging MRI brain combo-There is no hemorrhage, enhancing mass, or evidence of acute ischemia.There is loss of the left carotid artery flow void at the skull base suggesting age indeterminant occlusion. MRA brain- . Occluded left ICA. This may be chronic. 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 MRA neck -Occlusion of the left internal carotid artery with apparent patency of the left anterior and middle cerebral arteries, likely supplied by the right posterior communicating artery and anterior commuting artery. Tortuosity of the proximal right internal carotid artery without definite stenosis. CTA head-. Left internal carotid artery occlusion The anterior circulation of the left hemisphere is fed via a patent anterior communicating artery No evidence of aneurysm CTA neck Occlusion of the left internal carotid artery at its origin 50% diameter stenosis of the right internal carotid margin No evidence of vertebral artery stenosis xray lumbar spine Mild multilevel degenerative changes. No radiographic evidence of osseous neural foraminal narrowing. Impression 56 year old female with right leg numbness and spacy feeling Plan 1. MRI /MRA with occlusion of LICA 2. CTA head and neck - similar findings with collaterals 3. discussed need to stop smoking limit EtOH use 4. start aspirin 81 mg if no contraindication 5 optimize LDL <70, blood pressure control 6. establish care with PCP to follow I have seen and discussed above patient with Dr Emperatriz Paris, neurology Pt seen and examined, has not had med care for many years. 3 weeks of vague neuro sx, the initial of which was R arm and leg numbness with gait dysfunction and a strange feeling in the head without headache lasting 15 min which occurred on standing. Other spells vs ongoing incoordination of R hand, tingling of bl shoulders and arms. No scintillating visual pheno or cranial nn sx. No change in speech, language, alteration of consciousness. No chest pain , palp, recent head or neck injury. Exam is unremarkable including CN, motor sensory cerebellar and reflexes. MRI shows occlusion of LICA. I question whether the THU is stenotic rather than tortuous. Pt could have bihemispheric ischemia with drops in bp of multiple etiologies. P CTA head neck , confirm occlusion, r/o THU stenosis. Would rec echo, tele, asa, lipid profile, smoking cessation. Will follow with you. ESME Paris MD
[2017-02-06 23:20] VITALS: BP 132/81; PULSE 80; TEMP 36.6; O2SAT 98
[2017-02-07] VITALS (9 sets, daily range): BP systolic 122–154; BP diastolic 78–94; PULSE 72–80; TEMP 36.5–37; O2SAT 95–100
[2017-02-07 06:36] LABS: BASO % 0.2 %; BASO ABS # 0.01 K/uL (0-0.2); COMPLETE YES; EOS % 2.4 %; IG% 0.2 %; LYMPH % 32.2 %; MEAN CELL VOLUME 97.9 fL (80-100); MEAN CORPUSCULAR HEMOGLOBIN 33.3 pg (25-34); MEAN PLATELET VOLUME 8.6 fL (7.4-10.4); MONO % 8.3 %; NEUT % 56.7 %; PLATELET COUNT 198 K/uL (130-400); RED BLOOD COUNT 4.39 M/uL (4.2-5.4)
[2017-02-07 07:08] LABS: BUN/CREATININE RATIO 11.3 (10-20); CALCIUM 9.1 mg/dl (8.5-10.1); CREATININE 0.7 mg/dl (0.60-1.20); POTASSIUM 3.9 mmol/L (3.5-5.1)
[2017-02-07 07:11] LABS: CHOLESTEROL/HDL RATIO 3.8
[2017-02-07] MEDS ORDERED: ASPIRIN 81 MG ECTAB PO SCH ×2 (09:00)
[2017-02-07] MEDS: ATORVASTATIN 40 MG TAB PO SCH ×2 (09:00→09:19)
--- NOTE | 2017-02-07 11:37 | ECHOCARDIOGRAM REPORT ---
*NOTICE TO RECEIVING DEMOCRAT AGENCY This information is strictly Confidential and protected under [place] law. [place] law prohibits you from making any further disclosure of this information unless further disclosure is expressly permitted by the written consent of the person to whom it pertains or is authorized by law. A general authorization for the release of medical or other information is not sufficient for this purpose. Hospital accepts no responsibility if the information is made available to any other person, INCLUDING THE PATIENT. Interpretation Summary * Name: RACHEAL VAUGHAN Study Date: 02/07/2017 06:28 AM BP: 135/78 mmHg * Patient Location: C.2T\S\S236\S\1 HR: 74 * : 1960 (M/d/yyyy) Gender: Female Height: 65 in * Age: 56 yrs Ethnicity: [place] Weight: 145 lb * Ordering Physician: Carmita Bowling * Referring Physician: Self, Referred * Performed By: Brynn Ferrell RDCS * * Reason For Study: TIA * BSA: 1.7 m2 * -- Conclusions -- * Normal LV chamber size with mild concentric LVH. * Normal LV systolic function, EF 55-60%. * No segmental left ventricular wall motion abnormalities are noted. * Grade I diastolic dysfunction. * Trace mitral regurgitation. * The interatrial septum is intact with no evidence for an atrial septal defect. * Injection of contrast documented no interatrial shunt. Procedure Details * A saline contrast injection was performed to assess for cardiac shunting. * The injection was performed through an intravenous line in the left arm. * The attending nurse who injected the saline contrast was UMA ROSARIO. * A total of 20 cc of agitated saline was given. Left Ventricle * The left ventricle is normal in size. * There is mild concentric left ventricular hypertrophy. * Ejection Fraction = 55-60%. * Left ventricular systolic function is normal. * No segmental left ventricular wall motion abnormalities are noted. * The left ventricular wall motion is normal. Right Ventricle * The right ventricular cavity size is normal (basal dimension <4.2 cm in right ventricular apical 4-chamber view). * The right ventricular systolic function is normal as assessed by tricuspid annular plane systolic excursion (TAPSE) (normal >1.5 cm). Atria * The left atrial size is normal. * Right atrial size is normal. * The interatrial septum is intact with no evidence for an atrial septal defect. * Injection of contrast documented no interatrial shunt. Mitral Valve * The mitral valve anatomy is normal. * There is no mitral valve stenosis. * There is trace mitral regurgitation. Tricuspid Valve * The tricuspid valve is normal in structure and function. Aortic Valve * The aortic valve is normal in structure and function. Pulmonic Valve * The pulmonary valve is not well seen, but the Doppler examination is normal without significant regurgitation or stenosis. Great Vessels * The aortic root is normal size. Pericardium/Pleural * There is no pericardial effusion. Left Ventricular Diastolic Function * Grade I diastolic dysfunction, (abnormal relaxation pattern). MMode 2D Measurements and Calculations IVSd 1.1 cm IVSs 1.4 cm LVIDd 3.9 cm LVIDs 2.6 cm LVPWd 1.0 cm LVPWs 1.4 cm IVS/LVPW 1.1 FS 32.5 % EDV(Teich) 66.9 ml ESV(Teich) 25.8 ml EF(Teich) 61.5 % EDV(cubed) 60.5 ml ESV(cubed) 18.6 ml EF(cubed) 69.3 % % IVS thick 21.0 % % LVPW thick 36.6 % LV mass(C)d 138.0 grams LV mass(C)dI 80.0 grams/m\S\2 LV mass(C)s 118.2 grams LV mass(C)sI 68.5 grams/m\S\2 SV(Teich) 41.2 ml SI(Teich) 23.9 ml/m\S\2 SV(cubed) 41.9 ml SI(cubed) 24.3 ml/m\S\2 Ao root diam 3.1 cm Ao root area 7.7 cm\S\2 LA dimension 3.0 cm LA/Ao 0.94 LVAd ap4 24.9 cm\S\2 LVLd ap4 7.6 cm EDV(MOD-sp4) 68.7 ml LVAs ap4 14.1 cm\S\2 LVLs ap4 6.1 cm ESV(MOD-sp4) 29.0 ml EF(MOD-sp4) 57.8 % LVAd ap2 24.6 cm\S\2 LVLd ap2 7.4 cm EDV(MOD-sp2) 69.6 ml LVAs ap2 13.5 cm\S\2 LVLs ap2 5.8 cm ESV(MOD-sp2) 29.1 ml EF(MOD-sp2) 58.2 % SV(MOD-sp4) 39.7 ml SI(MOD-sp4) 23.0 ml/m\S\2 SV(MOD-sp2) 40.5 ml SI(MOD-sp2) 23.5 ml/m\S\2 Doppler Measurements and Calculations MV E max varinder 68.9 cm/sec MV A max varinder 88.3 cm/sec MV E/A 0.78 MV dec time 0.26 sec Ao V2 max 129.0 cm/sec Ao max PG 6.7 mmHg Ao max PG (full) 2.5 mmHg LV V1 max PG 4.2 mmHg LV V1 max 101.9 cm/sec
--- NOTE | 2017-02-07 12:13 | Neurology Progress Notes ---
Neurology Progress Note Date of Service Feb 07, 2017. Ashley Mireles is a 56 year old female who has a benign medical history however she does not follow with a PCP. She has a tobacco and EtOH abuse history. She was in her kitchen when she experienced a spacy feeling in her head and she was unable to control her right arm. Crawled to another room to call EMS. Symptoms resolved within 5 minutes and she was able to dress herself while still experiencing residual "heaviness". Over the past 2 weeks, patient has presented to the [facility] and [facility] EDs for similar symptoms. Had a CT head here on Friday that was normal. She did not have an MRI done during any of the visits because patient does not have insurance and did not want to pay out of pocket. intermittent episodes of paresthesias in bilateral UE and LE, and a feeling she has a hard time describing but she knows something is wrong. She states she had an episode at work with slowed mentation and dizziness but She states her dad had a stroke but he was 85 when that happened. She has no history of head trauma or falls no history of migraine Today she states she is about the same. She states she is getting numbness and tingling elbow to wrist and knee to ankle on the left. She states she has a foggy feeling with her thinking. denies any headache, pain, confusion, difficulty speaking, weakness or numbness in extremities, falls, N, V, swallowing issues Objective Date Time Temp Pulse Resp B/P (MAP) Pulse Ox O2 Delivery O2 Flow Rate FiO2 02/07/17 11:44 36.9 72 18 137/79 (98) 98 Room Air 02/07/17 08:00 95 Room Air 02/07/17 07:42 37.0 74 18 135/78 (97) 95 Room Air 02/07/17 04:34 36.8 75 16 154/94 (114) 100 Room Air 02/07/17 04:00 Room Air 02/07/17 00:00 Room Air 02/06/17 23:20 36.6 80 20 132/81 (98) 98 Room Air 02/06/17 20:00 Room Air 02/06/17 19:33 36.7 75 17 152/87 (108) 98 Room Air 02/06/17 18:23 36.7 73 17 154/82 (106) 97 Room Air 02/06/17 17:23 80 20 139/82 100 Room Air 02/06/17 16:15 80 18 139/80 97 Room Air 02/06/17 15:46 Room Air 02/06/17 13:53 84 18 152/94 99 Room Air Last 24 Hours Test 02/07/17 06:16 White Blood Count 5.90 K/uL Red Blood Count 4.39 M/uL Hemoglobin 14.6 g/dL Hematocrit 43.0 % Mean Corpuscular Volume 97.9 fL Mean Corpuscular Hemoglobin 33.3 pg Mean Corpuscular Hemoglobin Concent 34.0 g/dl Platelet Count 198 K/uL Mean Platelet Volume 8.6 fL Neutrophils (%) (Auto) 56.7 % Lymphocytes (%) (Auto) 32.2 % Monocytes (%) (Auto) 8.3 % Eosinophils (%) (Auto) 2.4 % Basophils (%) (Auto) 0.2 % Neutrophils # (Auto) 3.35 K/uL Lymphocytes # (Auto) 1.90 K/uL Monocytes # (Auto) 0.49 K/uL Eosinophils # (Auto) 0.14 K/uL Basophils # (Auto) 0.01 K/uL RDW Standard Deviation 45.6 fL RDW Coefficient of Variation 12.7 % Immature Granulocyte % (Auto) 0.2 % Immature Granulocyte # (Auto) 0.01 K/uL Sodium Level 141 mmol/L Potassium Level 3.9 mmol/L Chloride Level 108 mmol/L Carbon Dioxide Level 28 mmol/L Anion Gap 5.0 mmol/L Blood Urea Nitrogen 8 mg/dl Creatinine 0.70 mg/dl Est Creatinine Clear Calc Drug Dose 80.8 ml/min Estimated GFR () 112.3 Estimated GFR (Non- 96.9 BUN/Creatinine Ratio 11.3 Random Glucose 89 mg/dl Calcium Level 9.1 mg/dl Triglycerides Level 154 mg/dl Cholesterol Level 203 mg/dl HDL Cholesterol 54 mg/dl LDL Cholesterol, Calculated 118 mg/dl VLDL Cholesterol, Calculated 31 mg/dl Cholesterol/HDL Ratio 3.8 Imaging: CTA head-. Left internal carotid artery occlusion The anterior circulation of the left hemisphere is fed via a patent anterior communicating artery No evidence of aneurysm CTA neck- . Occlusion of the left internal carotid artery at its origin 50% diameter stenosis of the right internal carotid margin No evidence of vertebral artery stenosis TTE Normal LV chamber size with mild concentric LVH. * Normal LV systolic function, EF 55-60%. * No segmental left ventricular wall motion abnormalities are noted. * Grade I diastolic dysfunction. * Trace mitral regurgitation. * The interatrial septum is intact with no evidence for an atrial septal defect. * Injection of contrast documented no interatrial shunt. Exam: Physical Exam: Constitutional:, appearance nourished, healthy and normal Ears, Nose, Mouth and Throat: mucous membranes moist, no injection and skin normal, eyes normal Cardiovascular: normal S-1 and S-2 and regular rate and rhythm Respiratory: clear to auscultation (CTA) and no rales, rhonchi or wheeze Musculoskeletal: no peripheral edema and good distal pulses Skin: no stigmata of neurocutaneous disease noted and normal and intact Eyes: extraocular muscles intact (EOMI) and pupils equal, round and reactive to light (PERRL) NEUROLOGIC EXAMINATION: Mental status: Alert and interactive Oriented to full date and location Oriented to person Speech fluent with no evidence of aphasia Cranial Nerves facial symmetry, tongue midline Reflexes: Deep tendon reflexes were symmetrical and graded 2/5. brisk lower extremities Plantar responses were flexor. Sensory: cool touch, light touch Coordination: finger to nose without bi pass Gait/Stance: Posture normal. ambulating without difficulty from bed to chair and bathroom Motor: Negative for pronator drift of out stretched arms with eyes closed. Strength: biceps triceps hand sensor technician bilaterally 5/5 Current Inpatient Medications Medications (Trade) Dose Ordered Sig/Caro Route Start Time Stop Time Status Last Admin Dose Admin Gadobutrol (Gadavist) 6.6 mmol UD PRN IV 02/06/17 14:00 02/10/17 13:59 Acetaminophen (Tylenol Tab) 650 mg Q4H PRN PO 02/06/17 16:15 03/08/17 16:14 Ondansetron HCl (Zofran Inj) 4 mg Q6H PRN IV 02/06/17 16:15 03/08/17 16:14 Aspirin (Ecotrin Tab) 81 mg QAM PO 02/07/17 09:00 03/09/17 08:59 02/07/17 09:18 81 MG Ioversol (Optiray 320) 100 ml UD PRN IV 02/06/17 16:15 02/10/17 16:14 Miscellaneous Information (Pharmacist Discharge Med Rec Consult) 1 ea UD PRN N/A 02/06/17 16:15 03/08/17 16:14 Atorvastatin Calcium (Lipitor Tab) 80 mg QAM PO 02/06/17 16:15 03/08/17 16:14 02/07/17 09:19 80 MG Impression 56 year old female with right leg numbness and spacy feeling Plan 1. MRI /MRA with occlusion of LICA 2. CTA head and neck - similar findings with collaterals- 50 % stenosis right, occlusion on left 3. discussed need to stop smoking limit EtOH use 4. start aspirin 81 mg if no contraindication 5 optimize LDL <70, blood pressure control 6. establish care with PCP to follow 7. MRI c spine due to arm numbness and tingling with turning neck I have seen and discussed above patient with Dr Stewart Cordoba neurology Above reviewd with Emperatriz Duncan patient seen and examined history at best vague but agree that orthostatic induced slow collateral flow to the left hemisphere might be playing a role She has very brisk dtrs and equivocal toes and elements of history also suggest possible cervical sensory radicular symptoms so cervical mri is going to be done to check for possible high grade canal stenosis with cord signal Otherwise agree with the recommendations to use at least single antiplatelet rx, stop smoking,get with a pcp for vascular risk factor modifications will see tomorrow Roberta Cordoba MD
[2017-02-07] MEDS ORDERED: ASPEC81 PO (16:41)
--- NOTE | 2017-02-07 16:45 | Discharge Instructions ---
Discharge Instructions Date of Service Feb 07, 2017. Admission Reason for Admission: TIA Discharge Discharge Diagnosis / Problem: DIZZY SPELL /LEFT INTERNAR CAROTID ARTERY STENOSIS Discharge Goals Goal(s): Decrease discomfort, Improve disease control, Diagnostic testing Activity Recommendations Activity Limitations: resume your previous activity . Instructions / Follow-Up Instructions / Follow-Up PLEASE ESTABLISH CARE WITH FAMILY PHYSICIAN FOR CONTINUED FOLLOW UP NEED TO QUIT DRINKING EXCESSIVE ALCOHOL /NEED TO QUIT SMOKING , VERY IMPORTANT FOR PREVENT FOR FUTURE TIA/STROKE /HEART ATTACK CAROTID DOPPLER STUDY IN 12 MONTHS TO ASSESS LEFT INTERNAL CAROTID ARTERY STENOSIS Current Hospital Diet Patient's current hospital diet: AHA Diet (Heart Healthy) Discharge Diet Recommended Diet: AHA Diet (Heart Healthy) Pending Studies Studies pending at discharge: yes List of pending studies: CAROTID DOPPLER STUDY IN 12 MONTHS TO ASSESS LEFT INTERNAL CAROTID ARTERY STENOSIS Laboratory Results Hemoglobin A1c Test 02/06/17 10:08 Range/Units Estimated Average Glucose 108 mg/dl Hemoglobin A1c 5.4 4.5-5.6 % Lipid Panel Test 02/07/17 06:16 Range/Units Triglycerides Level 154 H 0-150 mg/dl Cholesterol Level 203 H 0-200 mg/dl HDL Cholesterol 54 mg/dl Cholesterol/HDL Ratio 3.8 LDL Cholesterol, Calculated 118 mg/dl Medical Emergencies . Who to Call and When: Medical Emergencies: If at any time you feel your situation is an emergency, please call 911 immediately. . Non-Emergent Contact Non-Emergency issues call your: Primary Care Provider . . "Provider Documentation" section prepared by Sarita Peters. . VTE Core Measure Inpt VTE Proph given/why not?: Enoxaparin (Lovenox)SQ
[2017-02-07] MEDS ORDERED: LPT40 PO (17:03)
--- NOTE | 2017-02-07 17:33 | Progress Note ---
Internal Med Progress Note Date of Service: Feb 07, 2017. Provider Documentation: SUBJECTIVE: still feel dizzy , speech is fluent , evaluated by Neurology earlier no evidence of acute CVA stable to be discharged home OBJECTIVE: Vital Signs-as noted below Exam: General-no sign of distress, anxious Eyes-sclera non icteric , PERRLA/EOMI ENT-NAD Neck-no JVD Lungs-CTA Heart-regular S1/S2 Abdomen-soft, non tender Extremities-no lower ext edema Neuro-no focal deficit noted Lab data as noted below. ASSESSMENT & PLAN: This is a 56yo F with a PMH of tobacco and etoh abuse who presents after an episode of R-sided numbness that occurred earlier this morning. R sided paresthesias, ?TIA: -Endorses intermittent numbness in head, R UE and LE with some paresthesias -Described multiple events over the past 2 weeks that correlate clinically with TIAs -Neuro exam normal, without any focal deficits. Patient with mentation intact. -Brain MRI, MRA brain and neck no acute CVA -Left ICA with total occlusion, which is the most likely cause of symptoms -Due to total occlusion, vascular surgery not indicated -Consulted neurology appreciate input recommend Aspirin 81 mg daily pt needs to quit smoking, and quit drinking ETOH excessively CTA of head and neck confirms L ICA occlusion -Started on aspirin, statin, discussed smoking cessation need to establish care with family physician for continued follow up DVT Ppx: Lovenox Code status: FULL PCP: None currently. Provided literature for establishing with [facility] [employer] pt applied for MA , waiting for acceptance DISPOSITION : stable to be discharged home Vital Signs: Date Time Temp Pulse Resp B/P (MAP) Pulse Ox O2 Delivery O2 Flow Rate FiO2 02/07/17 16:33 122/84 (97) 02/07/17 16:32 129/82 (98) 02/07/17 16:00 36.5 80 20 128/81 (97) 98 Room Air 02/07/17 16:00 95 Room Air 02/07/17 12:00 96 Room Air 02/07/17 11:44 36.9 72 18 137/79 (98) 98 Room Air 02/07/17 08:00 95 Room Air 02/07/17 07:42 37.0 74 18 135/78 (97) 95 Room Air 02/07/17 04:34 36.8 75 16 154/94 (114) 100 Room Air 02/07/17 04:00 Room Air 02/07/17 00:00 Room Air 02/06/17 23:20 36.6 80 20 132/81 (98) 98 Room Air 02/06/17 20:00 Room Air 02/06/17 19:33 36.7 75 17 152/87 (108) 98 Room Air 02/06/17 18:23 36.7 73 17 154/82 (106) 97 Room Air 02/06/17 17:23 80 20 139/82 100 Room Air Lab Results: Results Past 24 Hours Test 02/07/17 06:16 Range/Units White Blood Count 5.90 4.8-10.8 K/uL Red Blood Count 4.39 4.2-5.4 M/uL Hemoglobin 14.6 12.0-16.0 g/dL Hematocrit 43.0 37-47 % Mean Corpuscular Volume 97.9 80-100 fL Mean Corpuscular Hemoglobin 33.3 25-34 pg Mean Corpuscular Hemoglobin Concent 34.0 32-36 g/dl Platelet Count 198 130-400 K/uL Mean Platelet Volume 8.6 7.4-10.4 fL Neutrophils (%) (Auto) 56.7 % Lymphocytes (%) (Auto) 32.2 % Monocytes (%) (Auto) 8.3 % Eosinophils (%) (Auto) 2.4 % Basophils (%) (Auto) 0.2 % Neutrophils # (Auto) 3.35 1.4-6.5 K/uL Lymphocytes # (Auto) 1.90 1.2-3.4 K/uL Monocytes # (Auto) 0.49 0.11-0.59 K/uL Eosinophils # (Auto) 0.14 0-0.5 K/uL Basophils # (Auto) 0.01 0-0.2 K/uL RDW Standard Deviation 45.6 36.4-46.3 fL RDW Coefficient of Variation 12.7 11.5-14.5 % Immature Granulocyte % (Auto) 0.2 % Immature Granulocyte # (Auto) 0.01 0.00-0.02 K/uL Sodium Level 141 136-145 mmol/L Potassium Level 3.9 3.5-5.1 mmol/L Chloride Level 108 98-107 mmol/L Carbon Dioxide Level 28 21-32 mmol/L Anion Gap 5.0 3-11 mmol/L Blood Urea Nitrogen 8 7-18 mg/dl Creatinine 0.70 0.60-1.20 mg/dl Est Creatinine Clear Calc Drug Dose 80.8 ml/min Estimated GFR () 112.3 Estimated GFR (Non- 96.9 BUN/Creatinine Ratio 11.3 10-20 Random Glucose 89 70-99 mg/dl Calcium Level 9.1 8.5-10.1 mg/dl Triglycerides Level 154 0-150 mg/dl Cholesterol Level 203 0-200 mg/dl HDL Cholesterol 54 mg/dl LDL Cholesterol, Calculated 118 mg/dl VLDL Cholesterol, Calculated 31 mg/dl Cholesterol/HDL Ratio 3.8
--- NOTE | 2017-02-07 17:35 | Discharge Summary ---
Discharge Summary Date of Service Feb 07, 2017. Discharge Summary Admission Date: Feb 06, 2017 at 16:06 Discharge Date: Feb 07, 2017 Discharge Disposition: Home Principal Diagnosis: DIZZY SPELL /LEFT INTERNAL CAROTID ARTERY STENOSIS Procedures: CTA head-. Left internal carotid artery occlusion The anterior circulation of the left hemisphere is fed via a patent anterior communicating artery No evidence of aneurysm CTA neck- . Occlusion of the left internal carotid artery at its origin 50% diameter stenosis of the right internal carotid margin No evidence of vertebral artery stenosis TTE Normal LV chamber size with mild concentric LVH. * Normal LV systolic function, EF 55-60%. * No segmental left ventricular wall motion abnormalities are noted. * Grade I diastolic dysfunction. * Trace mitral regurgitation. * The interatrial septum is intact with no evidence for an atrial septal defect. * Injection of contrast documented no interatrial shunt. Consultations: NEUROLOGY Medication Reconciliation New Medications: Aspirin (Aspirin EC Low Dose) 81 Mg Ectab 81 MG PO QAM for 30 Days, #30 TABS Atorvastatin (Atorvastatin Calcium) 40 Mg Tab 80 MG PO QAM for 30 Days, #60 TAB 3 Refills Admission Information HPI (per Admitting provider): This is a 56yo F with a PMH of tobacco and etoh abuse who presents after an episode of R-sided numbness that occurred earlier this morning. Patient was in her kitchen when she experienced sudden numbness in her head and R extremities. Pt crawled to another room to call EMS. Symptoms resolved within 5 minutes and she was able to dress herself while still experiencing residual "heaviness". Denies any tingling or pain in extremities or difficulty with mentation or speech during this episode. Over the past 2 weeks, patient has presented to the [facility] and [facility] EDs for similar symptoms. Had a CT head here on Friday that was normal. She did not have an MRI done during any of the visits because patient does not have insurance and did not want to pay out of pocket. Currently endorses intermittent episodes of paresthesias in bilateral UE and LE , described as an "intellectual feeling that my body is not right". Also endorses slowed mentation and dizziness but denies any headache, pain, confusion , difficulty speaking, weakness or numbness in extremities. Physical Exam (per Admitting): General Appearance: WD/WN, no apparent distress Head: normocephalic, atraumatic Eyes: normal inspection, PERRL, EOMI, sclerae normal ENT: normal ENT inspection, hearing grossly normal Neck: supple, no adenopathy, thyroid normal, trachea midline Respiratory/Chest: chest non-tender, lungs clear, normal breath sounds, no respiratory distress, no accessory muscle use Cardiovascular: regular rate, rhythm, no edema, no gallop, no murmur, normal peripheral pulses Abdomen/GI: normal bowel sounds, non tender, soft, no organomegaly Back: normal inspection Extremities/Musculoskelatal: normal inspection, no calf tenderness, normal capillary refill, no pedal edema, normal range of motion Neurologic/Psych: cocktail server II-XII nml as tested, no motor/sensory deficits (Full ROM and 5/5 TERESITA in all extremities. Normal gait, cerebellar function intact. ), alert, normal mood/affect, oriented x 3 Skin: normal color, warm/dry Hospital Course This is a 56yo F with a PMH of tobacco and etoh abuse who presents after an episode of R-sided numbness that occurred earlier this morning. R sided paresthesias, ?TIA: -Endorses intermittent numbness in head, R UE and LE with some paresthesias -Described multiple events over the past 2 weeks that correlate clinically with TIAs -Neuro exam normal, without any focal deficits. Patient with mentation intact. -Brain MRI, MRA brain and neck no acute CVA -Left ICA with total occlusion, which is the most likely cause of symptoms -Due to total occlusion, vascular surgery not indicated -Consulted neurology appreciate input recommend Aspirin 81 mg daily pt needs to quit smoking, and quit drinking ETOH excessively CTA of head and neck confirms L ICA occlusion -Started on aspirin, statin, discussed smoking cessation need to establish care with family physician for continued follow up DVT Ppx: Lovenox Code status: FULL PCP: None currently. Provided literature for establishing with [employer] pt applied for MA , waiting for acceptance DISPOSITION : stable to be discharged home Total time spent on discharge = 40 mins This includes examination of the patient, discharge planning, medication reconciliation, and communication with other providers. Discharge Instructions Discharge Instructions Date of Service Feb 07, 2017. Admission Reason for Admission: TIA Discharge Discharge Diagnosis / Problem: DIZZY SPELL /LEFT INTERNAL CAROTID ARTERY STENOSIS Discharge Goals Goal(s): Decrease discomfort, Improve disease control, Diagnostic testing Activity Recommendations Activity Limitations: resume your previous activity . Instructions / Follow-Up Instructions / Follow-Up PLEASE ESTABLISH CARE WITH FAMILY PHYSICIAN FOR CONTINUED FOLLOW UP NEED TO QUIT DRINKING EXCESSIVE ALCOHOL /NEED TO QUIT SMOKING , VERY IMPORTANT FOR PREVENT FOR FUTURE TIA/STROKE /HEART ATTACK CAROTID DOPPLER STUDY IN 12 MONTHS TO ASSESS LEFT INTERNAL CAROTID ARTERY STENOSIS Current Hospital Diet Patient's current hospital diet: AHA Diet (Heart Healthy) Discharge Diet Recommended Diet: AHA Diet (Heart Healthy) Pending Studies Studies pending at discharge: yes List of pending studies: CAROTID DOPPLER STUDY IN 12 MONTHS TO ASSESS LEFT INTERNAL CAROTID ARTERY STENOSIS Laboratory Results Hemoglobin A1c Test 02/06/17 10:08 Range/Units Estimated Average Glucose 108 mg/dl Hemoglobin A1c 5.4 4.5-5.6 % Lipid Panel Test 02/07/17 06:16 Range/Units Triglycerides Level 154 H 0-150 mg/dl Cholesterol Level 203 H 0-200 mg/dl HDL Cholesterol 54 mg/dl Cholesterol/HDL Ratio 3.8 LDL Cholesterol, Calculated 118 mg/dl Medical Emergencies . Who to Call and When: Medical Emergencies: If at any time you feel your situation is an emergency, please call 911 immediately. . Non-Emergent Contact Non-Emergency issues call your: Primary Care Provider . . "Provider Documentation" section prepared by Sarita Peters. . VTE Core Measure Inpt VTE Proph given/why not?: Enoxaparin (Lovenox)SQ
== END 2017-02-07 18:26 | disposition home or self-care (01) | DRG 68 ==
LOC: EDBD 08:47 → C.EDB 08:49 → C.2T 16:06 → ENRESERV 17:12
PROVIDERS: ADMIT Internal Medicine; ATTEND Hospitalist
DX: I65.22 Occlusion and stenosis of left carotid artery (principal); F17.200 Nicotine dependence, unspecified, uncomplicated; R20.0 Anesthesia of skin; F10.10 Alcohol abuse, uncomplicated; Z85.828 Personal history of other malignant neoplasm of skin

== ENCOUNTER → 2017-09-09 | Outpatient (CLI) | payer OTHER ==
--- NOTE | 2017-09-09 09:51 | DIAGNOSTIC IMAGING REPORT ---
ULTRASOUND OF THE THYROID GLAND CLINICAL HISTORY: Thyroid nodule. COMPARISON STUDY: CT angiogram of the neck dated 02/06/2017. TECHNIQUE: Real-time, grayscale, and color flow sonography of the thyroid gland is performed utilizing a high-frequency linear transducer. Images are reviewed in the transverse and longitudinal planes. FINDINGS: Right lobe: The right lobe of the thyroid gland is normal in size and homogeneous in echotexture, measuring 4.5 x 1.4 x 2.0 cm. Left lobe: The left lobe of the thyroid gland is normal in size and homogeneous in echotexture, measuring 4.5 x 1.6 x 1.4 cm. A hypoechoic solid nodule in the mid to lower pole measures 1.0 x 1.0 x 0.9 cm. This contains small coarse calcifications. A slightly hyperechoic nodule in the posterior midpole measures 0.9 x 0.9 x 1.0 cm. Isthmus: The thyroid isthmus is normal in appearance and measures 0.1 cm in AP diameter. IMPRESSION: 1. The thyroid gland is normal in size and homogeneous in echotexture. 2. There are 2 nodules in the left thyroid lobe measuring up to 1.0 cm. These do not meet sonographic criteria for fine-needle aspiration at this time. A precautionary 1 year sonographic follow-up is recommended. Electronically signed by: Jackson Tejeda M.D. 09/09/2017 9:49 AM Dictated Date/Time: 09/09/2017 9:47 AM
== END | disposition home or self-care (01) ==
LOC: C.ULTR 08:51
PROVIDERS: ATTEND Family Medicine
DX: E04.2 Nontoxic multinodular goiter (principal)